=== PATIENT | male | born 1945 | race Caucasian/White ===

== ENCOUNTER 2018-03-03 18:51 | Observation (INO) ==
[2018-03-03] MEDS ORDERED: Naloxone 0.4 MG/ML INJ IVP PRN (22:17)
[2018-03-03] MEDS ORDERED: Ipratropium/Albuterol Neb 3 ML IH PRN (22:35)
[2018-03-03 22:45] LABS: Basophils % 0.4 %; Eosinophils # 0.3 K/mcL (0.0-0.6); Hematocrit 38.4 % (37.5-50.1); Hemoglobin 12.5 g/dL (12.9-16.9); Immature Granulocytes % 0.4 % (0-4); Lymphocytes # 0.8 K/mcL (0.6-4.6); Lymphocytes % 9.3 %; Mean Corpuscular HGB Conc 32.6 g/dL (31.6-35.5); Mean Corpuscular Hemoglobin 26.4 pg (28.0-33.3); Mean Corpuscular Volume 81.2 fL (83.0-100.0); Mean Platelet Volume 7.7 fL (9.4-12.4); Monocytes # 0.9 K/mcL (0.0-1.3); Monocytes % 10.7 %; Neutrophils # 6.5 K/mcL (1.6-8.9); Platelet Count 305 K/mcL (140-400); Red Blood Count 4.73 M/mcL (4.19-5.50); Red Cell Distribution Width 14.6 % (11.5-14.5); Segmented Neutrophils % 76.2 %; White Blood Count 8.5 K/mcL (4.3-11.1)
[2018-03-03 23:05] LABS: Alanine Aminotransferase 20 Units/L (7-52); Albumin 3.6 g/dL (3.5-5.7); Albumin/Globulin Ratio 1.2 (1.1-2.2); Alkaline Phosphatase 93 Units/L (34-104); Aspartate Amino Transferase 14 Units/L (13-39); BUN/Creatinine Ratio 10 (6-26); Bilirubin,Total 0.4 mg/dL (0.3-1.0); Blood Urea Nitrogen 6 mg/dL (8-23); Calcium 9.2 mg/dL (8.6-10.3); Carbon Dioxide 26 mEq/L (23-29); Chloride 93 mEq/L (98-107); Glucose 103 mg/dL (70-105); Magnesium 1.8 mg/dL (1.6-2.6); Osmolality,Calculated 264 (280-300); Phosphorous 4.2 mg/dL (2.7-4.5); Potassium 4.3 mEq/L (3.5-5.1); Sodium 128 mEq/L (136-145); Total Protein 6.6 g/dL (6.4-8.9); eGFR For African Americans > 60 (> 60); eGFR For Non-African Americans > 60 (> 60)
[2018-03-03 23:35] LABS: Bilirubin,Urine Negative (Negative); Blood,Urine Negative (Negative); Clarity,Urine Clear (Clear); Color,Urine Yellow (Yellow); Glucose,Urine (UA) Normal (Normal); Ketones,Urine 15 mg/dL (Negative); Leukocyte Esterase,Urine Negative (Negative); Nitrite,Urine Negative (Negative); Protein,Urine Negative (Neg-Trace); Specific Gravity,Urine 1.022 (1.010-1.025); Urobilinogen,Urine Normal (Normal)
[2018-03-03 23:44] LABS: Sodium, Urine 81.7 mEq/L
[2018-03-03 23:55] LABS: Thyroid Stimulating Hormone 1.479 mcIU/mL (0.340-5.600)
[2018-03-04] MEDS: *HR* Heparin 5,000 UNIT/ML VIAL SQ SCH ×4 (01:22→21:21)
[2018-03-04] MEDS: Furosemide 20 MG/2 ML VIAL IVP SCH ×3 (01:23→21:21)
[2018-03-04 04:29] LABS: VBG HCO3 28 mEq/L (21-27); VBG PCO2 48 mmHg (41-51); VBG PH 7.38 pH Units (7.32-7.42); VBG PO2 56 mmHg (25-50)
[2018-03-04 04:45] LABS: BUN/Creatinine Ratio 11 (6-26); Blood Urea Nitrogen 7 mg/dL (8-23); Calcium 9.1 mg/dL (8.6-10.3); Carbon Dioxide 26 mEq/L (23-29); Chloride 94 mEq/L (98-107); Glucose 93 mg/dL (70-105); Osmolality,Calculated 266 (280-300); Potassium 4.3 mEq/L (3.5-5.1); Sodium 129 mEq/L (136-145); eGFR For African Americans > 60 (> 60); eGFR For Non-African Americans > 60 (> 60)
[2018-03-04] MEDS: Sennosides/Docusate Sodium TABLET PO SCH ×2 (08:35→21:21)
[2018-03-04] MEDS: Aspirin Enteric Coated 81 MG Tablet PO SCH (08:35)
[2018-03-04] MEDS: amLODIPine 5 MG TABLET PO SCH (08:36)
[2018-03-04] MEDS: lisinopriL 20 MG TABLET PO SCH (08:36)
[2018-03-04] MEDS: carvediloL 6.25 MG TABLET PO SCH ×2 (08:36→21:21)
[2018-03-04] MEDS ORDERED: Sennosides 8.6 MG TABLET PO SCH (09:00)
[2018-03-05] MEDS: *HR* Heparin 5,000 UNIT/ML VIAL SQ SCH ×3 (06:02→22:29)
[2018-03-05] MEDS: Aspirin Enteric Coated 81 MG Tablet PO SCH (08:17)
[2018-03-05] MEDS: Sennosides/Docusate Sodium TABLET PO SCH ×2 (08:17→19:58)
[2018-03-05] MEDS: amLODIPine 5 MG TABLET PO SCH (08:17)
[2018-03-05] MEDS: carvediloL 6.25 MG TABLET PO SCH ×2 (08:17→19:58)
[2018-03-05] MEDS: lisinopriL 20 MG TABLET PO SCH (08:17)
[2018-03-05] MEDS: Furosemide 20 MG/2 ML VIAL IVP SCH (08:17)
[2018-03-06] MEDS: *HR* Heparin 5,000 UNIT/ML VIAL SQ SCH ×3 (04:43→23:33)
[2018-03-06] MEDS ORDERED: *HR* Midazolam HCl 2 MG/2 ML VIAL IVP ONE (08:37)
[2018-03-06] MEDS ORDERED: *HR* FentaNYL (PF) 100 MCG/2 ML VIAL IVP ONE (08:37)
[2018-03-06] MEDS ORDERED: 0.9 % Sodium Chloride 500 ML ONE (08:39)
[2018-03-06] MEDS ORDERED: *HR* Midazolam HCl 2 MG/2 ML VIAL ONE (08:44)
[2018-03-06] MEDS ORDERED: *HR* FentaNYL (PF) 100 MCG/2 ML VIAL ONE (08:44)
[2018-03-06] MEDS ORDERED: Isovue-370 500 ML INFUS..BTL IV ONE (09:18)
[2018-03-06] MEDS: amLODIPine 5 MG TABLET PO SCH (11:22)
[2018-03-06] MEDS: Furosemide 20 MG/2 ML VIAL IVP SCH (11:23)
[2018-03-06] MEDS: Aspirin Enteric Coated 81 MG Tablet PO SCH (11:23)
[2018-03-06] MEDS: carvediloL 6.25 MG TABLET PO SCH ×2 (11:24→23:33)
[2018-03-06] MEDS: lisinopriL 20 MG TABLET PO SCH (11:24)
[2018-03-06] MEDS: Sennosides/Docusate Sodium TABLET PO SCH ×2 (11:25→23:33)
[2018-03-07] MEDS: *HR* Heparin 5,000 UNIT/ML VIAL SQ SCH (05:57)
[2018-03-07 07:51] VITALS: BP 130/73
[2018-03-07] MEDS: Sennosides/Docusate Sodium TABLET PO SCH (08:41)
[2018-03-07] MEDS: lisinopriL 20 MG TABLET PO SCH (08:41)
[2018-03-07] MEDS: Aspirin Enteric Coated 81 MG Tablet PO SCH (08:41)
[2018-03-07] MEDS: carvediloL 6.25 MG TABLET PO SCH (08:41)
[2018-03-07] MEDS: amLODIPine 5 MG TABLET PO SCH (08:41)
[2018-03-07] MEDS: Furosemide 20 MG/2 ML VIAL IVP SCH (08:42)
== END 2018-03-07 12:02 | disposition home or self-care (01) ==
LOC: 2NENU 21:25 → SUATTDRO 21:25 → INTOOBSV 21:25
PROVIDERS: ADMIT Internal Medicine; ATTEND Internal Medicine